=== PATIENT | male | born 1965 | race Caucasian/White ===

== ENCOUNTER 2016-06-18 10:52 | Emergency (ER) | payer OTHER ==
[2016-06-18 12:08] LABS: BASO % 0.4 % (0.2-1.2); EOS # 0.1 10_X3_uL (0.0-0.5); EOS % 1.9 % (0.8-7.0); GRAN % 52.5 % (34.0-67.9); HEMOGLOBIN 15.2 g/dL (13.7-17.5); LYMPH # 2.2 10_X3_uL (1.3-3.6); LYMPH % 39.1 % (21.8-53.1); MEAN CORPUSCULAR HEMOGLOBIN 30.8 pg (27.0-33.0); MEAN CORPUSCULAR HGB CONC 34.5 g/dL (32.0-36.0); MEAN CORPUSCULAR VOLUME 89.1 fL (79-92); MEAN PLATELET VOLUME 9.4 fl (7.5-11.5); MONO # 0.4 10_X3_uL (0.3-0.8); MONO % 6.1 % (5.3-12.2); PLATELET COUNT 215 x10_3/uL (163-337); RED BLOOD COUNT 4.94 x10_6/uL (4.6-6.1); RED CELL DISTRIBUTION WIDTH 13.4 % (11.6-14.4); WHITE BLOOD COUNT 5.7 x10_3/uL (4.2-9.1)
== END 2016-06-18 12:40 | disposition home or self-care (01) ==
LOC: ER 10:52
PROVIDERS: General Practice
DX: J40 Bronchitis, not specified as acute or chronic (principal); M51.16 Intervertebral disc disorders with radiculopathy, lumbar region; G89.29 Other chronic pain; M54.5 Low back pain; K21.9 Gastro-esophageal reflux disease without esophagitis; F17.210 Nicotine dependence, cigarettes, uncomplicated; Z88.5 Allergy status to narcotic agent
CPT/HCPCS: 72128; 72131; 73700; 80307; 85025; 96372; 99283-25

== ENCOUNTER 2016-07-10 14:43 | Emergency (ER) | payer OTHER | END 2016-07-10 16:04 | disposition home or self-care (01) | LOC: ER 14:43 | DX: K08.89 Other specified disorders of teeth and supporting structures (principal); K08.409 Partial loss of teeth, unspecified cause, unspecified class; F17.210 Nicotine dependence, cigarettes, uncomplicated; R51 Headache; Z88.5 Allergy status to narcotic agent ==

== ENCOUNTER 2016-09-02 22:10 | Emergency (ER) | payer OTHER | END 2016-09-02 23:29 | disposition home or self-care (01) | LOC: ER 22:10 | DX: S93.402A Sprain of unspecified ligament of left ankle, initial encounter (principal); X50.0XXA Overexertion from strenuous movement or load, initial encounter; M19.90 Unspecified osteoarthritis, unspecified site; M51.9 Unspecified thoracic, thoracolumbar and lumbosacral intervertebral disc disorder; K21.9 Gastro-esophageal reflux disease without esophagitis; Z88.5 Allergy status to narcotic agent; Z79.899 Other long term (current) drug therapy | CPT/HCPCS: 73610; 73630; 99070; 99283 ==

== ENCOUNTER 2016-09-16 12:17 | Emergency (ER) | payer OTHER | END 2016-09-16 14:07 | disposition home or self-care (01) | LOC: ER 12:17 | DX: M25.511 Pain in right shoulder (principal); G89.29 Other chronic pain; M25.811 Other specified joint disorders, right shoulder; M75.91 Shoulder lesion, unspecified, right shoulder; M54.9 Dorsalgia, unspecified; Z88.5 Allergy status to narcotic agent; F17.210 Nicotine dependence, cigarettes, uncomplicated | CPT/HCPCS: 73030; 96372; 99283-25 ==